=== PATIENT | female | born 1955 | race Caucasian/White ===

== ENCOUNTER 2019-12-26 01:45 | Inpatient (IN) ==
[2019-12-26] MEDS ORDERED: Naloxone 0.4 MG/ML INJ IVP PRN (05:20)
[2019-12-26 05:46] LABS: Basophils # 0.1 K/mcL (0.0-0.2); Basophils % 0.9 %; Eosinophils # 0.5 K/mcL (0.0-0.6); Eosinophils % 5.6 %; Hematocrit 31.9 % (35.3-44.9); Hemoglobin 9.7 g/dL (11.5-15.4); Immature Granulocytes % 1.1 % (0-4); Lymphocytes # 2.9 K/mcL (0.6-4.6); Mean Corpuscular HGB Conc 30.4 g/dL (31.6-35.5); Mean Corpuscular Volume 88.9 fL (83.0-100.0); Mean Platelet Volume 11.1 fL (9.4-12.4); Monocytes # 0.8 K/mcL (0.0-1.3); Monocytes % 8.8 %; Neutrophils # 4.9 K/mcL (1.6-8.9); Platelet Count 212 K/mcL (140-400); Red Blood Count 3.59 M/mcL (3.82-4.97); Red Cell Distribution Width 13.1 % (11.5-14.5); Segmented Neutrophils % 52.6 %; White Blood Count 9.3 K/mcL (4.3-11.1)
[2019-12-26 05:56] LABS: Prothrombin Time 11.4 Seconds (9.4-12.1)
[2019-12-26 06:08] LABS: Calcium 7.8 mg/dL (8.6-10.3); Chol/HDL Ratio 4.2 (0-4.9); Magnesium 1.4 mg/dL (1.6-2.6); Potassium 3.6 mEq/L (3.5-5.1)
[2019-12-26] MEDS ORDERED: Regadenoson 0.4 MG/5 ML SYRINGE IVP ONE (07:37)
[2019-12-26] MEDS ORDERED: 0.9 % Sodium Chloride 500 ML IVC ONE (09:55)
[2019-12-26] MEDS: Aspirin Enteric Coated 81 MG Tablet PO SCH (10:02)
[2019-12-26] MEDS: amLODIPine 5 MG TABLET PO SCH (10:03)
[2019-12-26] MEDS: Metoprolol XL (24 HR) Succ 50 MG TAB.ER.24H PO SCH (10:03)
[2019-12-26] MEDS: hydrALAZINE 10 MG TABLET PO SCH ×3 (13:12→23:56)
[2019-12-26] MEDS ORDERED: Perflutren Lipid Microsphere 1.3 ML in 0.9 % Sodium Chloride 8.7 ML IVP PRN (13:28)
[2019-12-26] MEDS: Isosorbide MONOnitrate (24 HR) 30 MG TAB.ER.24H PO SCH (14:00)
[2019-12-27] MEDS: Acetaminophen 325 MG TABLET PO PRN ×2 (02:48→21:12)
[2019-12-27] MEDS: hydrALAZINE 10 MG TABLET PO SCH ×3 (06:25→17:22)
[2019-12-27] MEDS ORDERED: hydrOXYzine pamoate 25 MG CAPSULE PO PRN (07:25)
[2019-12-27] MEDS ORDERED: D5% in Water 1,000 ML IVC PRN (07:32)
[2019-12-27] MEDS ORDERED: *HR* Dextrose 50 % in Water (Vial) 50 ML VIAL IVP PRN (07:32)
[2019-12-27] MEDS ORDERED: Dextrose Gel 15 GM/37.5 ML TUBE PO PRN ×2 (07:32)
[2019-12-27] MEDS: Aspirin Enteric Coated 81 MG Tablet PO SCH (08:15)
[2019-12-27] MEDS: Pregabalin 25 MG CAPSULE PO SCH ×3 (08:16→21:08)
[2019-12-27] MEDS: Furosemide 20 MG TABLET PO SCH (08:16)
[2019-12-27] MEDS: Metoprolol XL (24 HR) Succ 50 MG TAB.ER.24H PO SCH (08:16)
[2019-12-27] MEDS: amLODIPine 5 MG TABLET PO SCH (08:16)
[2019-12-27] MEDS: Insulin DETEMIR 100 UNIT/ML X5UNITS SQ SCH ×2 (08:16→21:09)
[2019-12-27] MEDS ORDERED: Isosorbide MONOnitrate (24 HR) 30 MG TAB.ER.24H PO SCH (09:00)
[2019-12-27] MEDS: Isosorbide MONOnitrate (24 HR) 30 MG TAB.ER.24H PO SCH (10:32)
[2019-12-27 12:01] LABS: Bacteria,Urine Few per hpf (None-Few); Bilirubin,Urine Negative (Negative); Blood,Urine Trace (Negative); Clarity,Urine Clear (Clear); Color,Urine Light-Yellow (Yellow); Glucose,Urine (UA) 500 mg/dL (Normal); Hyaline Casts,Urine Few per lpf (None Seen); Ketones,Urine Negative (Negative); Leukocyte Esterase,Urine Negative (Negative); Mucus,Urine Few per lpf (None-Few); Nitrite,Urine Negative (Negative); PH,Urine 6.5 pH Units (5.0-8.0); Protein,Urine >=600 mg/dL (Neg-Trace); RBC,Urine 0-3 per hpf (0-3); Specific Gravity,Urine 1.021 (1.010-1.025); Squamous Epithelial Cell,Urine Moderate per hpf (None-Few); Urobilinogen,Urine Normal (Normal)
[2019-12-27 12:18] LABS: Creatinine,Urine 108 mg/dL; Microalbumin,Urine > 1350 mg/L; Protein/Creatinine Ratio,Urine 11.26 mg/mg (0.00-0.20); Sodium, Urine 61.6 mEq/L
[2019-12-27] MEDS: Ondansetron 4 MG/2 ML VIAL IVP PRN (12:38)
[2019-12-27] MEDS: Insulin LISPRO 300 UNITS/3 ML VIAL SQ SCH ×2 (12:39→17:20)
[2019-12-27 15:13] LABS: Basophils # 0.1 K/mcL (0.0-0.2); Basophils % 0.5 %; Eosinophils # 0.6 K/mcL (0.0-0.6); Eosinophils % 3.6 %; Hematocrit 31.5 % (35.3-44.9); Hemoglobin 9.9 g/dL (11.5-15.4); Immature Granulocytes % 0.9 % (0-4); Lymphocytes # 5.4 K/mcL (0.6-4.6); Lymphocytes % 33.6 %; Mean Corpuscular HGB Conc 31.4 g/dL (31.6-35.5); Mean Corpuscular Hemoglobin 27.7 pg (28.0-33.3); Mean Platelet Volume 11.2 fL (9.4-12.4); Monocytes # 1.3 K/mcL (0.0-1.3); Monocytes % 8.2 %; Neutrophils # 8.5 K/mcL (1.6-8.9); Platelet Count 267 K/mcL (140-400); Red Blood Count 3.58 M/mcL (3.82-4.97); Red Cell Distribution Width 13.1 % (11.5-14.5); Segmented Neutrophils % 53.2 %
[2019-12-27 15:28] LABS: Potassium 4.1 mEq/L (3.5-5.1)
[2019-12-27 15:55] LABS: Platelet Estimate Normal (Normal)
[2019-12-28] MEDS: hydrALAZINE 10 MG TABLET PO SCH ×4 (00:02→16:45)
[2019-12-28 03:29] LABS: Hematocrit 29.2 % (35.3-44.9); Hemoglobin 8.8 g/dL (11.5-15.4); Mean Corpuscular HGB Conc 30.1 g/dL (31.6-35.5); Mean Corpuscular Hemoglobin 27.1 pg (28.0-33.3); Mean Corpuscular Volume 89.8 fL (83.0-100.0); Mean Platelet Volume 11.6 fL (9.4-12.4); Platelet Count 209 K/mcL (140-400); Red Blood Count 3.25 M/mcL (3.82-4.97); Red Cell Distribution Width 13.2 % (11.5-14.5)
[2019-12-28 03:50] LABS: Calcium 7.6 mg/dL (8.6-10.3); Magnesium 2.3 mg/dL (1.6-2.6); Potassium 4.3 mEq/L (3.5-5.1)
[2019-12-28] MEDS: Insulin LISPRO 300 UNITS/3 ML VIAL SQ SCH ×3 (09:14→16:30)
[2019-12-28] MEDS: Furosemide 20 MG TABLET PO SCH (09:23)
[2019-12-28] MEDS: amLODIPine 5 MG TABLET PO SCH (09:24)
[2019-12-28] MEDS: Aspirin Enteric Coated 81 MG Tablet PO SCH (09:24)
[2019-12-28] MEDS: Isosorbide MONOnitrate (24 HR) 30 MG TAB.ER.24H PO SCH (09:24)
[2019-12-28] MEDS: Metoprolol XL (24 HR) Succ 50 MG TAB.ER.24H PO SCH (09:24)
[2019-12-28] MEDS: Pregabalin 25 MG CAPSULE PO SCH ×3 (09:24→21:38)
[2019-12-28] MEDS: Insulin DETEMIR 100 UNIT/ML X5UNITS SQ SCH ×2 (09:31→21:35)
[2019-12-28] MEDS ORDERED: 0.9 % Sodium Chloride 1,000 ML IVC SCH (10:00)
[2019-12-28] MEDS: Acetaminophen 325 MG TABLET PO PRN (15:20)
[2019-12-29] MEDS: hydrALAZINE 10 MG TABLET PO SCH ×4 (00:19→16:32)
[2019-12-29 04:40] LABS: Hematocrit 29.5 % (35.3-44.9); Hemoglobin 8.9 g/dL (11.5-15.4); Mean Corpuscular HGB Conc 30.2 g/dL (31.6-35.5); Mean Corpuscular Hemoglobin 27.4 pg (28.0-33.3); Mean Corpuscular Volume 90.8 fL (83.0-100.0); Mean Platelet Volume 11.7 fL (9.4-12.4); Platelet Count 202 K/mcL (140-400); Red Blood Count 3.25 M/mcL (3.82-4.97); Red Cell Distribution Width 12.9 % (11.5-14.5); White Blood Count 11.7 K/mcL (4.3-11.1)
[2019-12-29 04:50] LABS: Calcium 7.3 mg/dL (8.6-10.3); Potassium 4.6 mEq/L (3.5-5.1)
[2019-12-29 04:51] LABS: % Iron Saturation 27 % (15-50); Iron 53 mcg/dL (50-170); Transferrin 141 mg/dL (203-362)
[2019-12-29 05:09] LABS: Ferritin 429 ng/mL (10-120)
[2019-12-29 05:15] LABS: Folate 5.3 ng/mL (3.0-16.0)
[2019-12-29] MEDS: Insulin LISPRO 300 UNITS/3 ML VIAL SQ SCH ×3 (06:51→16:31)
[2019-12-29] MEDS ORDERED: 0.9 % Sodium Chloride 1,000 ML IVC SCH (07:15)
[2019-12-29] MEDS: Insulin DETEMIR 100 UNIT/ML X5UNITS SQ SCH ×2 (07:17→21:36)
[2019-12-29] MEDS: Aspirin Enteric Coated 81 MG Tablet PO SCH (07:17)
[2019-12-29] MEDS: Metoprolol XL (24 HR) Succ 50 MG TAB.ER.24H PO SCH (07:17)
[2019-12-29] MEDS: Isosorbide MONOnitrate (24 HR) 30 MG TAB.ER.24H PO SCH (07:18)
[2019-12-29] MEDS: amLODIPine 5 MG TABLET PO SCH (07:18)
[2019-12-29] MEDS: Pregabalin 25 MG CAPSULE PO SCH ×3 (07:18→21:36)
[2019-12-29] MEDS: Ondansetron 4 MG/2 ML VIAL IVP PRN (08:55)
[2019-12-29] MEDS: Cyanocobalamin (B-12) 1,000 MCG/ML VIAL IM SCH (08:56)
[2019-12-29] MEDS: Acetaminophen 325 MG TABLET PO PRN (09:00)
[2019-12-29] MEDS ORDERED: SODIUM CHLORIDE/NAHCO3/KCL/PEG 4,000 ML SOLN.RECON PO ONE (17:00)
[2019-12-29 19:51] LABS: Adenovirus Not Detected (Not Detect); Coronavirus 229E Not Detected (Not Detect); Coronavirus HKU1 Not Detected (Not Detect); Coronavirus NL63 Not Detected (Not Detect); Coronavirus OC43 Not Detected (Not Detect)
[2019-12-29 19:52] LABS: Bordetella Pertussis Not Detected (Not Detect); Chlamydophila pneumoniae Not Detected (Not Detect); Human Metapneumovirus Not Detected (Not Detect); Human Rhinovirus/Enterovirus Not Detected (Not Detect); Influenza A Subtype 2009 H1 Not Detected (Not Detect); Influenza B Not Detected (Not Detect); Mycoplasma pneumoniae Not Detected (Not Detect); Parainfluenza Virus 1 Not Detected (Not Detect); Parainfluenza Virus 2 Not Detected (Not Detect); Parainfluenza Virus 3 Not Detected (Not Detect); Parainfluenza Virus 4 Not Detected (Not Detect); Respiratory Syncytial Virus Not Detected (Not Detect); SARS-CoV-2 Not Detected (Not Detect)
[2019-12-30] MEDS: hydrALAZINE 10 MG TABLET PO SCH ×4 (00:47→16:36)
[2019-12-30 05:41] LABS: Hematocrit 33.5 % (35.3-44.9); Hemoglobin 10.3 g/dL (11.5-15.4); Mean Corpuscular HGB Conc 30.7 g/dL (31.6-35.5); Mean Corpuscular Hemoglobin 27.5 pg (28.0-33.3); Mean Corpuscular Volume 89.6 fL (83.0-100.0); Mean Platelet Volume 11.2 fL (9.4-12.4); Platelet Count 211 K/mcL (140-400); Red Blood Count 3.74 M/mcL (3.82-4.97); White Blood Count 9.6 K/mcL (4.3-11.1)
[2019-12-30 06:03] LABS: Calcium 8.2 mg/dL (8.6-10.3); Potassium 4.3 mEq/L (3.5-5.1)
[2019-12-30] MEDS: Aspirin Enteric Coated 81 MG Tablet PO SCH (08:40)
[2019-12-30] MEDS: Metoprolol XL (24 HR) Succ 50 MG TAB.ER.24H PO SCH (08:41)
[2019-12-30] MEDS: amLODIPine 5 MG TABLET PO SCH (08:41)
[2019-12-30] MEDS: Pregabalin 25 MG CAPSULE PO SCH ×3 (08:41→20:29)
[2019-12-30] MEDS: Cyanocobalamin (B-12) 1,000 MCG/ML VIAL IM SCH (08:41)
[2019-12-30] MEDS: Isosorbide MONOnitrate (24 HR) 30 MG TAB.ER.24H PO SCH (08:41)
[2019-12-30] MEDS ORDERED: Heparin 1,000 UNITS/500 mL 500 ML ONE (08:44)
[2019-12-30] MEDS ORDERED: Insulin DETEMIR 100 UNIT/ML X5UNITS SQ SCH (09:00)
[2019-12-30] MEDS ORDERED: *HR* FentaNYL (PF) 100 MCG/2 ML VIAL IVP ONE (09:01)
[2019-12-30] MEDS ORDERED: *HR* Midazolam HCl 5 MG/5 ML VIAL IVP ONE (09:01)
[2019-12-30] MEDS ORDERED: CeFAZolin 2,000 MG/50 ML BAG IVPB ONE (09:01)
[2019-12-30] MEDS ORDERED: 0.9 % Sodium Chloride 500 ML ONE (09:36)
[2019-12-30] MEDS ORDERED: *HR* Heparin 5,000 UNIT/ML VIAL ONE (09:48)
[2019-12-30] MEDS: Insulin LISPRO 300 UNITS/3 ML VIAL SQ SCH ×2 (10:38→16:36)
[2019-12-30] MEDS ORDERED: *HR* Propofol 200 MG/20 ML VIAL IVP ONE (12:14)
[2019-12-30] MEDS ORDERED: Lidocaine -MPF 2% 2 ML VIAL ONE (12:14)
[2019-12-30] MEDS ORDERED: Ondansetron 4 MG/2 ML VIAL ONE (12:35)
[2019-12-30] MEDS ORDERED: Famotidine 20 MG/2 ML VIAL ONE (13:10)
[2019-12-31] MEDS: hydrALAZINE 10 MG TABLET PO SCH ×4 (00:35→17:49)
[2019-12-31 04:59] LABS: Hematocrit 28.6 % (35.3-44.9); Hemoglobin 8.8 g/dL (11.5-15.4); Mean Corpuscular HGB Conc 30.8 g/dL (31.6-35.5); Mean Corpuscular Hemoglobin 27.8 pg (28.0-33.3); Mean Corpuscular Volume 90.5 fL (83.0-100.0); Platelet Count 199 K/mcL (140-400); Red Blood Count 3.16 M/mcL (3.82-4.97); White Blood Count 11.7 K/mcL (4.3-11.1)
[2019-12-31 05:18] LABS: Calcium 7.6 mg/dL (8.6-10.3); Potassium 4.6 mEq/L (3.5-5.1)
[2019-12-31 07:44] LABS: Hepatitis B Surface Antibody < 3.10 mIU/mL
[2019-12-31 07:55] LABS: Hepatitis B Surface Antigen Nonreactive (Nonreactive)
[2019-12-31] MEDS: Insulin LISPRO 300 UNITS/3 ML VIAL SQ SCH ×3 (08:02→17:48)
[2019-12-31] MEDS: Aspirin Enteric Coated 81 MG Tablet PO SCH (08:04)
[2019-12-31] MEDS: Isosorbide MONOnitrate (24 HR) 30 MG TAB.ER.24H PO SCH (08:04)
[2019-12-31] MEDS: Pregabalin 25 MG CAPSULE PO SCH ×3 (08:04→20:34)
[2019-12-31] MEDS: amLODIPine 5 MG TABLET PO SCH (08:04)
[2019-12-31] MEDS: Metoprolol XL (24 HR) Succ 50 MG TAB.ER.24H PO SCH (08:04)
[2019-12-31] MEDS: Cyanocobalamin (B-12) 1,000 MCG/ML VIAL IM SCH (08:05)
[2019-12-31] MEDS ORDERED: *HR* Heparin 10,000 UNIT/10 ML VIAL IV PRN ×2 (08:21)
[2019-12-31] MEDS ORDERED: 0.9 % Sodium Chloride 250 ML IVC PRN (08:21)
[2019-12-31] MEDS ORDERED: 0.9 % Sodium Chloride 1,000 ML PRIME SCH (08:30)
[2019-12-31] MEDS ORDERED: *HR* Metoprolol 5 MG/5 ML VIAL IVP ONE (08:31)
[2019-12-31] MEDS ORDERED: Darbepoetin 100 MCG/0.5 ML SYRINGE SQ SCH (15:15)
[2020-01-01] MEDS: hydrALAZINE 10 MG TABLET PO SCH ×4 (00:26→18:09)
[2020-01-01 05:19] LABS: Hematocrit 16.7 % (35.3-44.9); Mean Corpuscular HGB Conc 31.7 g/dL (31.6-35.5); Mean Corpuscular Hemoglobin 27.9 pg (28.0-33.3); Mean Corpuscular Volume 87.9 fL (83.0-100.0); Mean Platelet Volume 11.2 fL (9.4-12.4); Platelet Count 237 K/mcL (140-400); Red Cell Distribution Width 13.1 % (11.5-14.5); White Blood Count 12.2 K/mcL (4.3-11.1)
[2020-01-01 05:21] LABS: Hemoglobin 5.3 g/dL (11.5-15.4)
[2020-01-01] MEDS ORDERED: 0.9 % Sodium Chloride 250 ML IVC SCH (05:30)
[2020-01-01 05:35] LABS: Calcium 7.4 mg/dL (8.6-10.3); Potassium 4.1 mEq/L (3.5-5.1)
[2020-01-01 05:50] LABS: Hematocrit 25.5 % (35.3-44.9)
[2020-01-01 05:52] LABS: Hemoglobin 7.9 g/dL (11.5-15.4)
[2020-01-01] MEDS ORDERED: 0.9 % Sodium Chloride 1,000 ML PRIME SCH (07:15)
[2020-01-01] MEDS ORDERED: 0.9 % Sodium Chloride 250 ML IVC PRN (07:15)
[2020-01-01] MEDS ORDERED: *HR* Heparin 10,000 UNIT/10 ML VIAL IV PRN ×2 (07:15)
[2020-01-01] MEDS: Insulin LISPRO 300 UNITS/3 ML VIAL SQ SCH ×3 (11:00→17:48)
[2020-01-01] MEDS: Pregabalin 25 MG CAPSULE PO SCH ×3 (11:11→19:45)
[2020-01-01] MEDS: Isosorbide MONOnitrate (24 HR) 30 MG TAB.ER.24H PO SCH (11:11)
[2020-01-01] MEDS: amLODIPine 5 MG TABLET PO SCH (11:11)
[2020-01-01] MEDS: Aspirin Enteric Coated 81 MG Tablet PO SCH (11:11)
[2020-01-01] MEDS: Metoprolol XL (24 HR) Succ 50 MG TAB.ER.24H PO SCH (11:11)
[2020-01-02] MEDS: hydrALAZINE 10 MG TABLET PO SCH ×4 (00:14→20:24)
[2020-01-02 04:43] LABS: Hematocrit 30.9 % (35.3-44.9); Mean Corpuscular HGB Conc 31.1 g/dL (31.6-35.5); Mean Corpuscular Hemoglobin 27.5 pg (28.0-33.3); Mean Corpuscular Volume 88.5 fL (83.0-100.0); Mean Platelet Volume 11.2 fL (9.4-12.4); Platelet Count 192 K/mcL (140-400); Red Blood Count 3.49 M/mcL (3.82-4.97); Red Cell Distribution Width 13.2 % (11.5-14.5); White Blood Count 10.9 K/mcL (4.3-11.1)
[2020-01-02 04:47] LABS: Hemoglobin 9.6 g/dL (11.5-15.4)
[2020-01-02 04:58] LABS: Calcium 7.6 mg/dL (8.6-10.3); Potassium 3.8 mEq/L (3.5-5.1)
[2020-01-02] MEDS ORDERED: 0.9 % Sodium Chloride 250 ML IVC PRN (07:07)
[2020-01-02] MEDS ORDERED: *HR* Heparin 10,000 UNIT/10 ML VIAL IV PRN ×2 (07:07)
[2020-01-02] MEDS: Insulin LISPRO 300 UNITS/3 ML VIAL SQ SCH ×3 (09:11→17:55)
[2020-01-02] MEDS: Aspirin Enteric Coated 81 MG Tablet PO SCH (12:19)
[2020-01-02] MEDS: Metoprolol XL (24 HR) Succ 50 MG TAB.ER.24H PO SCH (12:19)
[2020-01-02] MEDS: Pregabalin 25 MG CAPSULE PO SCH ×3 (12:19→21:56)
[2020-01-02] MEDS: amLODIPine 5 MG TABLET PO SCH (12:19)
[2020-01-02] MEDS: Isosorbide MONOnitrate (24 HR) 30 MG TAB.ER.24H PO SCH (12:19)
[2020-01-02] MEDS: Ondansetron 4 MG/2 ML VIAL IVP PRN (20:24)
[2020-01-03] MEDS: hydrALAZINE 10 MG TABLET PO SCH ×4 (00:27→16:27)
[2020-01-03 05:55] LABS: Hematocrit 32.2 % (35.3-44.9); Mean Corpuscular HGB Conc 31.1 g/dL (31.6-35.5); Mean Corpuscular Hemoglobin 27.4 pg (28.0-33.3); Mean Corpuscular Volume 88.2 fL (83.0-100.0); Platelet Count 198 K/mcL (140-400); Red Blood Count 3.65 M/mcL (3.82-4.97); Red Cell Distribution Width 13.1 % (11.5-14.5); White Blood Count 9.9 K/mcL (4.3-11.1)
[2020-01-03 06:15] LABS: Calcium 8.1 mg/dL (8.6-10.3)
[2020-01-03] MEDS: Insulin LISPRO 300 UNITS/3 ML VIAL SQ SCH ×3 (07:09→16:29)
[2020-01-03] MEDS: Isosorbide MONOnitrate (24 HR) 30 MG TAB.ER.24H PO SCH (07:50)
[2020-01-03] MEDS: amLODIPine 5 MG TABLET PO SCH (07:50)
[2020-01-03] MEDS: Metoprolol XL (24 HR) Succ 50 MG TAB.ER.24H PO SCH (07:50)
[2020-01-03] MEDS: Aspirin Enteric Coated 81 MG Tablet PO SCH (07:50)
[2020-01-03] MEDS: Pregabalin 25 MG CAPSULE PO SCH ×3 (07:50→20:23)
[2020-01-04] MEDS: hydrALAZINE 10 MG TABLET PO SCH ×4 (00:27→16:39)
[2020-01-04 05:47] LABS: Hematocrit 32.2 % (35.3-44.9); Hemoglobin 10.1 g/dL (11.5-15.4); Mean Corpuscular HGB Conc 31.4 g/dL (31.6-35.5); Mean Corpuscular Volume 89.2 fL (83.0-100.0); Mean Platelet Volume 11.1 fL (9.4-12.4); Platelet Count 213 K/mcL (140-400); Red Blood Count 3.61 M/mcL (3.82-4.97); Red Cell Distribution Width 12.9 % (11.5-14.5)
[2020-01-04 05:58] LABS: Calcium 7.9 mg/dL (8.6-10.3); Potassium 4.1 mEq/L (3.5-5.1)
[2020-01-04] MEDS: Insulin LISPRO 300 UNITS/3 ML VIAL SQ SCH ×3 (07:38→16:41)
[2020-01-04] MEDS: Isosorbide MONOnitrate (24 HR) 30 MG TAB.ER.24H PO SCH (08:12)
[2020-01-04] MEDS: amLODIPine 5 MG TABLET PO SCH (08:12)
[2020-01-04] MEDS: Aspirin Enteric Coated 81 MG Tablet PO SCH (08:12)
[2020-01-04] MEDS: Pregabalin 25 MG CAPSULE PO SCH ×3 (08:12→21:24)
[2020-01-04] MEDS: Metoprolol XL (24 HR) Succ 50 MG TAB.ER.24H PO SCH (08:12)
[2020-01-04] MEDS: Ondansetron 4 MG/2 ML VIAL IVP PRN (17:10)
[2020-01-05] MEDS: hydrALAZINE 10 MG TABLET PO SCH ×4 (00:46→17:17)
[2020-01-05 06:01] LABS: Hematocrit 32.1 % (35.3-44.9); Hemoglobin 9.7 g/dL (11.5-15.4); Mean Corpuscular HGB Conc 30.2 g/dL (31.6-35.5); Mean Corpuscular Hemoglobin 27.4 pg (28.0-33.3); Mean Corpuscular Volume 90.7 fL (83.0-100.0); Mean Platelet Volume 11.4 fL (9.4-12.4); Platelet Count 212 K/mcL (140-400); Red Blood Count 3.54 M/mcL (3.82-4.97); Red Cell Distribution Width 12.8 % (11.5-14.5); White Blood Count 11.1 K/mcL (4.3-11.1)
[2020-01-05 06:15] LABS: Calcium 7.9 mg/dL (8.6-10.3); Potassium 4.4 mEq/L (3.5-5.1)
[2020-01-05] MEDS ORDERED: *HR* Heparin 10,000 UNIT/10 ML VIAL IV PRN (07:27)
[2020-01-05] MEDS ORDERED: 0.9 % Sodium Chloride 250 ML IVC PRN (07:27)
[2020-01-05] MEDS ORDERED: 0.9 % Sodium Chloride 1,000 ML PRIME SCH (07:30)
[2020-01-05] MEDS: Insulin LISPRO 300 UNITS/3 ML VIAL SQ SCH ×3 (08:00→17:27)
[2020-01-05 09:43] LABS: Magnesium 1.8 mg/dL (1.6-2.6)
[2020-01-05] MEDS: Ondansetron 4 MG/2 ML VIAL IVP PRN (11:18)
[2020-01-05] MEDS: Isosorbide MONOnitrate (24 HR) 30 MG TAB.ER.24H PO SCH (14:03)
[2020-01-05] MEDS: Aspirin Enteric Coated 81 MG Tablet PO SCH (14:03)
[2020-01-05] MEDS: amLODIPine 5 MG TABLET PO SCH (14:18)
[2020-01-05] MEDS: Pregabalin 25 MG CAPSULE PO SCH ×3 (14:18→20:09)
[2020-01-05] MEDS: Metoprolol XL (24 HR) Succ 50 MG TAB.ER.24H PO SCH (14:19)
[2020-01-05] MEDS: Acetaminophen 325 MG TABLET PO PRN (22:23)
[2020-01-06] MEDS: hydrALAZINE 10 MG TABLET PO SCH ×4 (00:02→17:58)
[2020-01-06] MEDS: Insulin LISPRO 300 UNITS/3 ML VIAL SQ SCH ×3 (08:01→17:04)
[2020-01-06] MEDS: Aspirin Enteric Coated 81 MG Tablet PO SCH (09:01)
[2020-01-06] MEDS: Isosorbide MONOnitrate (24 HR) 30 MG TAB.ER.24H PO SCH (09:01)
[2020-01-06] MEDS: Pregabalin 25 MG CAPSULE PO SCH ×3 (09:01→20:50)
[2020-01-06] MEDS: amLODIPine 5 MG TABLET PO SCH (09:01)
[2020-01-06] MEDS: Metoprolol XL (24 HR) Succ 50 MG TAB.ER.24H PO SCH (09:01)
[2020-01-06 09:06] LABS: Hematocrit 40.6 % (35.3-44.9); Mean Corpuscular HGB Conc 30.5 g/dL (31.6-35.5); Mean Corpuscular Hemoglobin 27.1 pg (28.0-33.3); Mean Corpuscular Volume 88.8 fL (83.0-100.0); Platelet Count 221 K/mcL (140-400); Red Blood Count 4.57 M/mcL (3.82-4.97); White Blood Count 11.6 K/mcL (4.3-11.1)
[2020-01-06 09:11] LABS: Hemoglobin 12.4 g/dL (11.5-15.4)
[2020-01-06 09:26] LABS: Calcium 8.4 mg/dL (8.6-10.3); Potassium 4.3 mEq/L (3.5-5.1)
[2020-01-07] MEDS: hydrALAZINE 10 MG TABLET PO SCH ×3 (00:01→11:57)
[2020-01-07 07:07] LABS: Calcium 7.8 mg/dL (8.6-10.3); Potassium 4.9 mEq/L (3.5-5.1)
[2020-01-07] MEDS: Insulin LISPRO 300 UNITS/3 ML VIAL SQ SCH ×2 (07:24→12:07)
[2020-01-07] MEDS: Aspirin Enteric Coated 81 MG Tablet PO SCH (07:27)
[2020-01-07] MEDS: Metoprolol XL (24 HR) Succ 50 MG TAB.ER.24H PO SCH (07:27)
[2020-01-07] MEDS: amLODIPine 5 MG TABLET PO SCH (07:27)
[2020-01-07] MEDS: Pregabalin 25 MG CAPSULE PO SCH (07:27)
[2020-01-07] MEDS: Isosorbide MONOnitrate (24 HR) 30 MG TAB.ER.24H PO SCH (07:27)
[2020-01-07] MEDS ORDERED: *HR* Heparin 10,000 UNIT/10 ML VIAL IV PRN (11:24)
[2020-01-07] MEDS ORDERED: 0.9 % Sodium Chloride 250 ML IVC PRN (11:24)
[2020-01-07] MEDS: Ondansetron 4 MG/2 ML VIAL IVP PRN (13:21)
[2020-01-07 15:18] VITALS: BP 148/76
== END 2020-01-07 15:46 | disposition home health service (06) | DRG 302 ==
LOC: 2ANU → SUATTDRO 03:50
PROVIDERS: ADMIT Internal Medicine; ATTEND Internal Medicine
PROC: IRPERMA (2019-12-30 12:00)

== ENCOUNTER 2021-02-04 09:19 | Observation (INO) ==
[2021-02-04] MEDS ORDERED: Naloxone 0.4 MG/ML INJ IVP PRN (14:43)
[2021-02-04] MEDS ORDERED: Ondansetron 4 MG/2 ML VIAL IVP PRN (14:43)
[2021-02-04] MEDS ORDERED: *HR* HYDROcodone/Acet 5/325 mg TABLET PO PRN (14:43)
[2021-02-04] MEDS ORDERED: Dextrose Gel 15 GM/37.5 ML TUBE PO PRN ×2 (14:47)
[2021-02-04] MEDS ORDERED: D5% in Water 1,000 ML IVC PRN (14:47)
[2021-02-04] MEDS ORDERED: *HR* Dextrose 50 % in Water (Syg) 50 ML SYRINGE IVP PRN (14:47)
[2021-02-04] MEDS ORDERED: Albuterol 2.5 MG/3 ML NEBULIZER IH PRN (16:05)
[2021-02-04] MEDS ORDERED: Nitroglycerin 0.4 MG TAB.SUBL SL PRN (16:05)
[2021-02-04] MEDS ORDERED: hydrOXYzine pamoate 25 MG CAPSULE PO PRN (16:05)
[2021-02-04] MEDS: Insulin LISPRO 300 UNITS/3 ML VIAL SUBQ SCH (17:02)
[2021-02-04] MEDS: *HR* Heparin 5,000 UNIT/ML VIAL SQ SCH (17:05)
[2021-02-04] MEDS: Pregabalin 25 MG CAPSULE PO SCH (20:18)
[2021-02-05 03:44] LABS: Basophils % 0.5 %; Eosinophils # 0.3 K/mcL (0.0-0.6); Eosinophils % 3.4 %; Hemoglobin 8.9 g/dL (11.5-15.4); Immature Granulocytes % 0.8 % (0-4); Lymphocytes # 1.8 K/mcL (0.6-4.6); Lymphocytes % 21.6 %; Mean Corpuscular HGB Conc 30.7 g/dL (31.6-35.5); Mean Corpuscular Hemoglobin 29.6 pg (28.0-33.3); Mean Corpuscular Volume 96.3 fL (83.0-100.0); Monocytes # 0.7 K/mcL (0.0-1.3); Monocytes % 8.7 %; Neutrophils # 5.5 K/mcL (1.6-8.9); Platelet Count 181 K/mcL (140-400); Red Blood Count 3.01 M/mcL (3.82-4.97); White Blood Count 8.4 K/mcL (4.3-11.1)
[2021-02-05 03:57] LABS: Calcium 7.6 mg/dL (8.6-10.3); Magnesium 2.1 mg/dL (1.6-2.6); Potassium 4.6 mEq/L (3.5-5.1)
[2021-02-05] MEDS ORDERED: 0.9 % Sodium Chloride 1,000 ML IV ONE (04:24)
[2021-02-05 04:29] LABS: Troponin I 1.28 ng/mL (< 0.04)
[2021-02-05] MEDS: *HR* Heparin 5,000 UNIT/ML VIAL SQ SCH ×2 (05:20→16:57)
[2021-02-05] MEDS ORDERED: Albumin 25% 25gram/100mL 25 GM/100 ML IV.SOLN IVPB PRN (06:59)
[2021-02-05] MEDS ORDERED: 0.9 % Sodium Chloride 250 ML IVC PRN (06:59)
[2021-02-05] MEDS ORDERED: 0.9 % Sodium Chloride 1,000 ML PRIME SCH ×2 (07:00→07:45)
[2021-02-05] MEDS: Metoprolol XL (24 HR) Succ 50 MG TAB.ER.24H PO SCH (08:39)
[2021-02-05] MEDS: Calcium Acetate 667 MG CAPSULE PO SCH ×3 (08:44→16:57)
[2021-02-05] MEDS: Aspirin Enteric Coated 81 MG Tablet PO SCH (08:44)
[2021-02-05] MEDS: Cyanocobalamin (B-12) 1,000 MCG TABLET PO SCH (08:44)
[2021-02-05] MEDS: Pregabalin 25 MG CAPSULE PO SCH ×3 (08:44→19:46)
[2021-02-05] MEDS: Insulin LISPRO 300 UNITS/3 ML VIAL SUBQ SCH ×3 (08:45→16:31)
[2021-02-05] MEDS ORDERED: Isosorbide MONOnitrate (24 HR) 30 MG TAB.ER.24H PO SCH (09:00)
[2021-02-05] MEDS ORDERED: amLODIPine 5 MG TABLET PO SCH (09:00)
[2021-02-05] MEDS ORDERED: Metoprolol XL (24 HR) Succ 50 MG TAB.ER.24H PO SCH (09:00)
[2021-02-05 10:17] LABS: Hepatitis B Surface Antibody 13.23 mIU/mL
[2021-02-05 10:29] LABS: Hepatitis B Surface Antigen Nonreactive (Nonreactive)
[2021-02-06] MEDS: *HR* Heparin 5,000 UNIT/ML VIAL SQ SCH (06:14)
[2021-02-06 06:27] LABS: Basophils # 0.1 K/mcL (0.0-0.2); Basophils % 0.8 %; Eosinophils # 0.2 K/mcL (0.0-0.6); Eosinophils % 2.8 %; Hematocrit 25.7 % (35.3-44.9); Immature Granulocytes % 0.9 % (0-4); Lymphocytes # 1.6 K/mcL (0.6-4.6); Lymphocytes % 19.5 %; Mean Corpuscular HGB Conc 31.1 g/dL (31.6-35.5); Mean Corpuscular Hemoglobin 30.4 pg (28.0-33.3); Mean Corpuscular Volume 97.7 fL (83.0-100.0); Mean Platelet Volume 10.9 fL (9.4-12.4); Monocytes # 0.8 K/mcL (0.0-1.3); Monocytes % 10.1 %; Neutrophils # 5.2 K/mcL (1.6-8.9); Platelet Count 190 K/mcL (140-400); Red Blood Count 2.63 M/mcL (3.82-4.97); Red Cell Distribution Width 14.9 % (11.5-14.5); Segmented Neutrophils % 65.9 %; White Blood Count 7.9 K/mcL (4.3-11.1)
[2021-02-06 06:48] LABS: Calcium 7.8 mg/dL (8.6-10.3); Phosphorous 4.8 mg/dL (2.7-4.5); Potassium 4.1 mEq/L (3.5-5.1)
[2021-02-06 08:08] VITALS: BP 108/63; PULSE 72; TEMP 99.3
[2021-02-06] MEDS: Insulin LISPRO 300 UNITS/3 ML VIAL SUBQ SCH ×2 (09:14→15:06)
[2021-02-06] MEDS: Metoprolol XL (24 HR) Succ 50 MG TAB.ER.24H PO SCH (15:05)
[2021-02-06 15:08] VITALS: O2SAT 95
[2021-02-06] MEDS: Calcium Acetate 667 MG CAPSULE PO SCH (15:08)
[2021-02-06] MEDS: Pregabalin 25 MG CAPSULE PO SCH ×2 (15:08→15:14)
[2021-02-06] MEDS: Aspirin Enteric Coated 81 MG Tablet PO SCH (15:14)
[2021-02-06] MEDS: Cyanocobalamin (B-12) 1,000 MCG TABLET PO SCH (15:14)
== END 2021-02-06 15:30 | disposition home health service (06) ==
LOC: 2ANU → SUATTDRO 14:17
PROVIDERS: ADMIT Hospitalist; ATTEND Internal Medicine